=== PATIENT | male | born 1990 | race Caucasian/White ===

== ENCOUNTER 2019-12-19 10:18 | Emergency (ER) | payer OTHER ==
[~2019-12-19] VITALS: Ht 175.3 cm; Wt 99.3 kg
--- NOTE | 2019-12-19 10:25 | NUR ---
Patient to ER bed 5 to gown for evaluation. Side rails up. Report given to Ron MICHELLE.
[2019-12-19 10:27] VITALS: BP_SYST 154
--- NOTE | 2019-12-19 10:27 | NUR ---
Patient arrived in the ED c/o right-sided chest pain and palpitations ongoing for 10 years now. Patient denied any SOB. Denied any fevers, chills, nausea or vomiting. Patient is alert and oriented x4, respirations even and unlabored, speaking in full sentences and ambulating with a steady gait. Informed of the approximate wait time. Instructed to notify ED staff for any changes in condition or worsening of symptoms. Patient verbalized understanding.
--- NOTE | 2019-12-19 10:31 | NUR ---
ER Dr. Soriano at bedside examining patient.
[2019-12-19] MEDS ORDERED: KETOROLAC TROMETHAMINE 60 MG/2 ML VIAL IM ONE (10:45)
--- NOTE | 2019-12-19 10:54 | NUR ---
computer engineering technologist at bedside for xray.
--- NOTE | 2019-12-19 11:30 | NUR ---
ER Dr. Soriano at bedside for re-evaluation and discharge instructions.
[2019-12-19 11:40] VITALS: BP_SYST 129
--- NOTE | 2019-12-19 11:40 | NUR ---
Patient given written and verbal discharge instructions and verbalizes understanding. ER MD Dr. Soriano discussed with patient the results and treatment provided. Patient in stable condition. ID arm band removed. Rx of Naproxen given. Patient educated on pain management and to follow up with PMD. Pain Scale 0/10. Opportunity for questions provided and answered. Medication side effect fact sheet provided.
== END 2019-12-19 11:40 | disposition home or self-care (01) ==
LOC: SED 10:18
DX: R07.89 Other chest pain (principal)
CPT/HCPCS: 71045; 93005; 96372; 99283; J1885

== ENCOUNTER 2019-12-19 20:42 | Emergency (ER) | payer OTHER ==
[~2019-12-19] VITALS: Ht 175.3 cm; Wt 99.8 kg
--- NOTE | 2019-12-19 20:45 | NUR ---
Patient triaged and placed in waiting room. VSS and patient appears in no acute distress at this time. Accompanied by self , awaiting available bed, and MD notified of need for MSE.
[2019-12-19 20:57] VITALS: BP_SYST 142
--- NOTE | 2019-12-19 22:09 | NUR ---
Patient to ER bed 04 to gown for evaluation. Side rails up.
--- NOTE | 2019-12-19 22:15 | NUR ---
Patient brought in complaining of left sided sharp intermittent chest pain x 1 week was seen earlier today and prescribed Naprosyn. Patient reports pain has worsen since discharge. Patient denies any cough congestion fevers chills or shortness of breath. No other complaints/injuries per patient or as noted. Will continue to monitor.
--- NOTE | 2019-12-19 22:30 | NUR ---
ER Dr. Johnson at bedside examining patient.
[2019-12-19 23:03] VITALS: BP_SYST 136
--- NOTE | 2019-12-19 23:03 | NUR ---
Patient given written and verbal discharge instructions and verbalizes understanding. ER MD discussed with patient the results and treatment provided. Patient in stable condition. ID arm band removed. Rx of robaxin given. Patient educated on pain management and to follow up with PMD. Pain Scale 0/10 Opportunity for questions provided and answered. Medication side effect fact sheet provided.
== END 2019-12-19 23:03 | disposition home or self-care (01) ==
LOC: SED 20:42
DX: R07.9 Chest pain, unspecified (principal)
CPT/HCPCS: 93005; 99283